=== PATIENT | male | born 1980 | race Caucasian/White ===

== ENCOUNTER 2019-09-13 19:16 | Emergency (ER) | payer OTHER ==
[~2019-09-13] VITALS: Ht 165.1 cm; Wt 93.0 kg
[~2019-09-13 19:16] MED LIST: HYDACE5 PO; NAPR550 PO; OXYACE5T PO; PROM25 PO; RXNAPNA550 PO
[2019-09-13] MEDS ORDERED: SERT25 PO (20:29)
== END 2019-09-13 20:45 | disposition home or self-care (01) ==
LOC: ER 19:16
DX: S43.014A Anterior dislocation of right humerus, initial encounter (principal); S43.035A Inferior dislocation of left humerus, initial encounter; X58.XXXA Exposure to other specified factors, initial encounter
CPT/HCPCS: 23650; 73060; 99283-25

== ENCOUNTER → 2021-01-25 | Outpatient (CLI) | payer OTHER ==
[~2021-01-25] MED LIST changes: +SERT25 PO
== END | disposition home or self-care (01) ==
LOC: LAB SHORT 18:15
DX: L02.416 Cutaneous abscess of left lower limb (principal)
CPT/HCPCS: 87070; 87075; 87077; 87186; 87205

== ENCOUNTER 2021-07-14 04:59 | Emergency (ER) | payer OTHER ==
[~2021-07-14] VITALS: Ht 170.2 cm; Wt 83.9 kg
[2021-07-14 06:15] LABS: Source, Urine Clean Catch
[2021-07-14 06:22] LABS: Appearance, Urine Hazy (Clear); Bilirubin, Urine Neg (Neg); Blood, Urine 4+ (Neg); Color, Urine Yellow (P-Yellow); Glucose Qualitative, Urine Neg (Neg); Ketones, Urine 3+ (Neg); Leukocyte Esterase, Urine Neg (Neg); Nitrite, Urine Neg (Neg); Protein, Urine 1+ (Neg); Urobilinogen, Urine NORM (Normal); pH, Urine 6.5 (5.0-8.0)
[2021-07-14 06:23] LABS: BASOPHILS ABSOLUTE AUTO 0.04 K/mm3 (0.00-0.23); BASOPHILS PERCENT AUTO 0 % (0-2); EOSINOPHILS ABSOLUTE AUTO 0.01 K/mm3 (0.00-0.68); EOSINOPHILS PERCENT AUTO 0 % (0-6); Hematocrit 50.4 % (37.0-53.0); Hemoglobin 17.1 g/dL (13.5-17.5); IMMATURE GRAN ABSOLUTE AUTO 0.06 K/mm3 (0.00-0.10); IMMATURE GRAN PERCENT AUTO 0 % (0-1); LYMPHOCYTES ABSOLUTE AUTO 1.07 K/mm3 (0.84-5.20); LYMPHOCYTES PERCENT AUTO 7 % (21-46); MONOCYTES ABSOLUTE AUTO 0.49 K/mm3 (0.16-1.47); MONOCYTES PERCENT AUTO 3 % (4-13); Mean Corpuscular HGB 31.4 pg (26.0-34.0); Mean Corpuscular HGB Conc 33.9 g/dL (31.5-36.5); Mean Corpuscular Volume 93 fL (80-100); Mean Platelet Volume 11.4 fL (9.1-12.4); NEUTROPHILS ABSOLUTE AUTO 14.69 K/mm3 (1.96-9.15); NEUTROPHILS PERCENT AUTO 90 % (41-73); Platelet Count 183 K/mm3 (150-400); RDW Coefficient Variation 12.2 % (11.7-14.2); RDW Standard Deviation 41.1 fL (35.1-46.3); Red Blood Cell Count 5.44 M/mm3 (4.30-5.90); White Blood Cell Count 16.36 K/mm3 (4.00-11.30)
[2021-07-14] MEDS ORDERED: ONDA4ODT MM (06:34)
[2021-07-14] MEDS ORDERED: Norco 7.5-3251 EACH PO (06:34)
[2021-07-14 06:45] LABS: Red Blood Cells, Urine 25-50 /hpf (0-2); Squamous Epithelial Cells Not Seen /hpf (Few)
[2021-07-14 06:46] LABS: Amorphous Mod (0-Heavy); Bacteria Few /hpf
[2021-07-14 06:48] LABS: Alanine Aminotransfer (ALT/SGP 23 U/L (12-78); Albumin, Blood 4.1 g/dL (3.4-5.0); Alk Phos 83 U/L (50-136); Anion Gap 7 mmol/L (6-16); Aspartate Aminotrans (AST/SGOT 23 U/L (12-37); Bilirubin, Total 0.6 mg/dL (0.1-1.0); Blood Urea Nitrogen 23 mg/dL (8-24); Bun/Creatinine Ratio 22.3 (12.0-20.0); CO2, Blood 25 mmol/L (21-32); Calcium, Blood 9.4 mg/dL (8.5-10.1); Chloride, Blood 110 mmol/L (98-108); Creatinine, Blood 1.03 mg/dL (0.60-1.20); Globulin, Blood 4.2 g/dL (2.2-4.0); Glomerular Filtration Rate >60 (60-); Glucose, Blood 161 mg/dL (70-99); Potassium, Blood 4.1 mmol/L (3.5-5.5); Sodium, Blood 142 mmol/L (136-145); Total Protein, Blood 8.3 g/dL (6.4-8.2)
== END 2021-07-14 07:01 | disposition home or self-care (01) ==
LOC: ER 04:59
PROVIDERS: Emergency Medicine
DX: N20.1 Calculus of ureter (principal)
CPT/HCPCS: 36415; 80053; 81001; 83690; 85025; 96372; 99284-25; A9270; J1885

== ENCOUNTER → 2023-08-18 | Outpatient (CLI) | payer OTHER ==
[~2023-08-18] MED LIST changes: +Norco 7.5-3251 EACH PO; +ONDA4ODT MM; +TAMS.4ER PO
[2023-08-20 12:07] LABS: COTININE Negative ng/mL (Cutoff=300)
== END | disposition home or self-care (01) ==
LOC: LAB SHORT 13:35 → LAB 13:35 → EDSTATUS 07-31 15:15 → LAB FUT 07-31 15:15
PROVIDERS: Orthopaedic Surgery
DX: Z01.812 Encounter for preprocedural laboratory examination (principal); Z87.891 Personal history of nicotine dependence